=== PATIENT | female | born 1995 | race Hispanic/Latino ===

== ENCOUNTER 2021-03-11 15:48 | Observation (INO) | payer BC ==
[~2021-03-11] VITALS: Ht 162.6 cm; Wt 70.3 kg
[2021-03-11 15:49] VITALS: BP 116/71
[2021-03-11 16:44] LABS: APPEARANCE,URINE CLOUDY (CLEAR); BILIRUBIN,URINE NEGATIVE (NEGATIVE); COLOR,URINE YELLOW (YELLOW); GLUCOSE, URINE (UA) NEGATIVE (NEGATIVE); KETONES,URINE NEGATIVE (NEGATIVE); LEUKOCYTE ESTERASE ,URINE NEGATIVE (NEGATIVE); NITRATE,URINE NEGATIVE (NEGATIVE); OCCULT BLOOD,URINE NEGATIVE (NEGATIVE); PROTEIN,URINE NEGATIVE (NEGATIVE); UROBILINOGEN,URINE 0.2 mg/dL (0.2-1.0)
[2021-03-11 16:58] LABS: AMORPHOUS SEDIMENT,UR Moderate /LPF (None Seen); BACTERIA,URINE Few /HPF (None Seen); RBC,URINE 0-1 /HPF (0-1); SQUAMOUS EPITHELIAL CELL,UR Rare /HPF (0-2); WBC,URINE 0-1 /HPF (0-1)
[2021-03-11 16:59] LABS: COARSE GRANULAR CASTS,URINE 0-2 /LPF (None Seen)
[2021-03-11] MEDS ORDERED: CITRIC ACID/SODIUM CITRATE 30 ML UDCUP PO SCH (17:30)
[2021-03-11 17:40] LABS: HEMATOCRIT 28.9 % (36-48); MEAN CORPUSCULAR HEMOGLOBIN 29.9 pg (27.0-33.0); MEAN CORPUSCULAR HGB CONC 33.2 g/dL (32.0-36.0); RED BLOOD CELL COUNT(AUTO) 3.21 MIL/uL (4.00-5.50); RED CELL DISTRIBUTION WIDTH 12.6 % (11.0-15.5); WHITE BLOOD COUNT (AUTO) 8.4 K/uL (4.8-10.8)
[2021-03-11 17:55] LABS: ALANINE AMINOTRANSFERASE 30 U/L (12-78); ALBUMIN 2.5 g/dL (3.5-5.0); ASPARTATE AMINOTRANSFERASE 21 U/L (10-37); BILIRUBIN,TOTAL 0.1 mg/dL (0.2-1.0); TOTAL PROTEIN, SERUM 6.2 g/dL (6.0-8.3)
[2021-03-11 18:07] LABS: BILIRUBIN,DIRECT < 0.1 mg/dL (0.0-0.3)
== END 2021-03-11 18:40 | disposition home or self-care (01) ==
LOC: EDH 15:48 → LDH 16:01
PROVIDERS: ADMIT Specialist; ATTEND Specialist
DX: O26.893 Other specified pregnancy related conditions, third trimester (principal); Z20.822 Contact with and (suspected) exposure to COVID-19; R10.10 Upper abdominal pain, unspecified; Z3A.31 31 weeks gestation of pregnancy
CPT/HCPCS: 36415; 59025; 76705; 80076; 81001; 85027; 87635; 87804; G0378; G0379

== ENCOUNTER 2021-05-10 18:12 | Inpatient (IN) | payer BC ==
[~2021-05-10] VITALS: Ht 162.6 cm; Wt 68.0 kg
[2021-05-10] MEDS ORDERED: PROMETHAZINE HCL 25 MG/ML 1ML AMPULE IM PRN (18:30)
[2021-05-10] MEDS ORDERED: ROPIVACAINE 0.2% 100ML VIAL 100 ML EP SCH (18:30)
[2021-05-10] MEDS ORDERED: MISOPROSTOL 25 MCG TABLET VG SCH (18:30)
[2021-05-10] MEDS ORDERED: EPHEDRINE SULFATE 50 MG/ML AMPULE IVP PRN (18:30)
[2021-05-10] MEDS ORDERED: LACTATED RINGERS 500 ML 500 ML IV PRN (18:30)
[2021-05-10] MEDS ORDERED: OXYTOCIN-LR 20 UNITS/1000 ML 1,000 ML IV SCH (18:30)
[2021-05-10] MEDS ORDERED: NALOXONE HCL 0.4 MG/1 ML ML IV PRN (18:30)
[2021-05-10] MEDS ORDERED: MEPERIDINE-PF 50 MG/ML SYG IVP PRN (18:30)
[2021-05-10 18:58] LABS: HEMATOCRIT 33.5 % (36-48); MEAN CORPUSCULAR VOLUME 88.2 fL (79-99); RED BLOOD CELL COUNT(AUTO) 3.8 MIL/uL (4.00-5.50); WHITE BLOOD COUNT (AUTO) 8.1 K/uL (4.8-10.8)
[2021-05-10 19:00] LABS: APPEARANCE,URINE Cloudy (CLEAR); BILIRUBIN,URINE Negative (NEGATIVE); COLOR,URINE Yellow (YELLOW); GLUCOSE, URINE (UA) Negative (NEGATIVE); KETONES,URINE Trace mg/dL (NEGATIVE); LEUKOCYTE ESTERASE ,URINE Small (NEGATIVE); NITRATE,URINE Negative (NEGATIVE); OCCULT BLOOD,URINE Negative (NEGATIVE); PH,URINE 6.5 (5.0-8.0); PROTEIN,URINE Negative (NEGATIVE); UROBILINOGEN,URINE 0.2 mg/dL (0.2-1.0)
[2021-05-10 19:17] LABS: BACTERIA,URINE Few /HPF (None Seen); RBC,URINE 0-1 /HPF (0-1); SQUAMOUS EPITHELIAL CELL,UR Few /HPF (0-2)
[2021-05-10 19:18] LABS: MUCUS,URINE Few LPF (None Seen)
[2021-05-10] MEDS: LACTATED RINGERS 1000ML 1,000 ML IV PRN (19:18)
[2021-05-10 20:56] VITALS: BP 126/83
[2021-05-10] MEDS ORDERED: FERR-82 PO (21:00)
[2021-05-10] MEDS ORDERED: PREN1TAB80 PO (21:00)
[2021-05-11] MEDS: LACTATED RINGERS 1000ML 1,000 ML IV PRN (03:44)
[2021-05-11] MEDS ORDERED: MISOPROSTOL 200 MCG TABLET ONE (05:59)
[2021-05-11] MEDS ORDERED: OXYTOCIN-LR 20 UNITS/1000 ML 1,000 ML IV SCH ×2 (06:00→08:30)
[2021-05-11] MEDS ORDERED: LIDOCAINE HCL 1% 20 ML VIAL ONE (06:00)
[2021-05-11] MEDS ORDERED: WITCH HAZEL 1 PAD TP PRN (08:30)
[2021-05-11] MEDS ORDERED: MEASLES/MUMPS/RUBELLA VACCINE, LIVE 0.5 ML/VIAL SQ PRN (08:30)
[2021-05-11] MEDS ORDERED: ACETAMINOPHEN WITH CODEINE 1 TAB TAB PO PRN (08:30)
[2021-05-11] MEDS ORDERED: DIPH,PERTUSS(ACELL),TET VAC/PF 0.5 ML VIAL IM PRN (08:30)
[2021-05-11] MEDS ORDERED: ACETAMINOPHEN 325 MG TAB PO PRN (08:30)
[2021-05-11] MEDS ORDERED: LANOLIN 30GM OINTMENT TP PRN (08:30)
[2021-05-11] MEDS ORDERED: BENZOCAINE/LANOLIN/ALOE VERA 60 ML AEROSOL TP PRN (08:30)
[2021-05-11 10:16] VITALS: BP 143/81
[2021-05-11] MEDS: DOCUSATE SODIUM 100 MG CAP PO SCH ×2 (10:33→21:42)
[2021-05-11 10:56] VITALS: BP 129/73
[2021-05-11 16:44] VITALS: BP 124/69
[2021-05-11 19:23] VITALS: BP 130/80
[2021-05-11 23:12] VITALS: BP 116/61
[2021-05-12 03:19] VITALS: BP 115/55
[2021-05-12 07:11] VITALS: BP 120/76
[2021-05-12 07:17] LABS: HEPATITIS Bs ANTIGEN SCREEN P Negative (Negative)
[2021-05-12] MEDS: IBUPROFEN 600 MG TABLET PO PRN ×2 (07:37→20:21)
[2021-05-12] MEDS: DOCUSATE SODIUM 100 MG CAP PO SCH ×2 (09:08→20:19)
[2021-05-12 11:49] VITALS: BP 122/69
[2021-05-12 16:31] VITALS: BP 128/71
[2021-05-12 19:14] VITALS: BP 129/81
[2021-05-12 23:00] VITALS: BP 110/65
[2021-05-13 03:07] VITALS: BP 115/71
[2021-05-13] MEDS: IBUPROFEN 600 MG TABLET PO PRN (03:22)
[2021-05-13 07:17] VITALS: BP 125/64
[2021-05-13] MEDS: DOCUSATE SODIUM 100 MG CAP PO SCH (08:48)
== END 2021-05-13 11:50 | disposition home or self-care (01) | DRG 807 ==
LOC: LDH 18:12 → WSH 05-11 10:18
PROVIDERS: ADMIT Specialist; ATTEND Specialist
PROC: 10E0XZZ Delivery of Products of Conception, External Approach (ICD-10-PCS; principal; 2021-05-11)
PROC: 3E033VJ Introduction of Other Hormone into Peripheral Vein, Percutaneous Approach (ICD-10-PCS; 2021-05-11)
PROC: 3E0P7GC Introduction of Other Therapeutic Substance into Female Reproductive, Via Natural or Artificial Opening (ICD-10-PCS; 2021-05-11)
PROC: 0W8NXZZ Division of Female Perineum, External Approach (ICD-10-PCS; 2021-05-11)
PROC: 3E0R3BZ Introduction of Anesthetic Agent into Spinal Canal, Percutaneous Approach (ICD-10-PCS; 2021-05-11)
PROC: 00HU33Z Insertion of Infusion Device into Spinal Canal, Percutaneous Approach (ICD-10-PCS; 2021-05-11)
DX: O80 Encounter for full-term uncomplicated delivery (principal); Z37.0 Single live birth; Z3A.40 40 weeks gestation of pregnancy
CPT/HCPCS: 36415; 81001; 85027; 86592; 86850; 86900; 86901; 87340; A4314; A4351; G0378; J2590; J2795